=== PATIENT | male | born 1965 | race Caucasian/White ===

== ENCOUNTER 2017-12-02 10:26 | Inpatient (IN) | payer OTHER ==
[2017-12-02] MEDS ORDERED: Albuterol/Ipratropium 3.0-0.5 MG/3 ML Neb Soln NEB ONE (10:33)
[2017-12-02] MEDS ORDERED: Aspirin 81 MG Tab.Chew PO ONE (10:33)
[2017-12-02] MEDS ORDERED: Sodium Chloride 0.9% 2.5 ML Syringe FLUSH PRN (10:33)
[2017-12-02] MEDS ORDERED: Nitroglycerin 2% Oint 1 GM UD Packet TOP ONE (10:33)
[2017-12-02] MEDS ORDERED: Sodium Chloride 0.9% 10 ML Syringe FLUSH PRN (10:33)
--- NOTE | 2017-12-02 10:35 | EDM.PDOC ---
ED HPI GENERAL MEDICAL PROBLEM - General Chief Complaint: Respiratory Problem Stated Complaint: SOB Time Seen by Provider: 12/02/17 10:27 - History of Present Illness INITIAL COMMENTS - FREE TEXT/NARRATIVE: HISTORY AND PHYSICAL: History of present illness: The patient is a 52-year-old male presents with a two-week history of progressive shortness of breath and coughing occasionally productive of phlegm and feeling like he has great difficulty breathing. The patient said that about 2 weeks ago he thought he had cold symptoms and that there was some phlegm and he felt short of breath and that seemed to improve slightly from the phlegm perspective but the shortness of breath seemed to progress. Patient does have a history of sleep apnea and is supposed to use CPAP but due to his insurance he does not have that. He sleeps in a recliner for the most of the nights but occasionally he will sleep in bed. He says that he has not had a fever vomiting abdominal pain urinary issues leg pain or swelling. He denies chest pain but says that he feels like there is phlegm in there or fluid that he cannot get out. The shortness of breath seemed to be worse today and he had a restless night so he came in for evaluation. He has a history of borderline diabetes and thinks he has high blood pressure but he has not seen her provider in quite some time and has no medical diagnosis nor does he take any medications. The patient is a smoker of one pack a day but no drug use. Review of systems: As per history of present illness and below otherwise all systems reviewed and negative. Past medical history: As per history of present illness and as reviewed below otherwise noncontributory. Surgical history: As per history of present illness and as reviewed below otherwise noncontributory. Social history: No reported history of drug or alcohol abuse. Family history: As per history of present illness and as reviewed below otherwise noncontributory. Physical exam: General: Well-developed well-nourished man who is severely overweight but is speaking clearly in the ED with breathlessness only with activity. His O2 sat on room air ranges from 88-91% on my evaluation. His elevated blood pressure is also noted by me HEENT: Atraumatic, normocephalic, pupils reactive, negative for conjunctival pallor or scleral icterus, mucous membranes moist, throat clear, neck supple, nontender, trachea midline. Lungs: Upper lobes Clear to auscultation, very diminished in the bases and poor air exchange overall, there are occasional coarse breath sounds and slight crackles in the bases, breath sounds equal bilaterally, chest nontender. There is no work of breathing stridor Heart: S1S2, regular rate and rhythm no overt murmurs, the patient was not legs to evaluate JVD Abdomen: Soft, nondistended, nontender. Negative for masses or hepatosplenomegaly. Negative for costovertebral tenderness. Pelvis: Stable nontender. Genitourinary: Deferred. Rectal: Deferred. Extremities: Atraumatic, negative for cords or calf pain. Neurovascular unremarkable. Is trace pedal edema but no leg asymmetry or calf tenderness Neuro: Awake, alert, oriented. Cranial nerves II through XII unremarkable. Cerebellum unremarkable. Motor and sensory unremarkable throughout. Exam nonfocal. Skin: There is no diaphoresis, no overt skin lesions or rashes and turgor is normal Diagnostics: EKG chest x-ray CBC CMP BNP troponin INR lactic acid Therapeutics: IV O2 monitor aspirin duo neb nitro paste, Solu-Medrol Lasix Testing results were discussed with the patient and the case was discussed with Dr. Longo at 11:32 AM. The patient will be admitted as an inpatient and treated for congestive heart failure which is new as well as hypertension. He is aware of testing results and is agreeable. Impression: Dyspnea progressive, new CHF, hypertension untreated Definitive disposition and diagnosis as appropriate pending reevaluation and review of above. - Related Data Allergies Allergy/AdvReac Type Severity Reaction Status Date / Time No Known Allergies Allergy Verified 12/02/17 10:37 Home Meds: Home Meds . [No Known Home Meds] 12/02/17 [History] Past Medical History HEENT History: Reports: None Cardiovascular History: Reports: None Respiratory History: Reports: None Gastrointestinal History: Reports: None Genitourinary History: Reports: Renal Calculus Musculoskeletal History: Reports: None Neurological History: Reports: None Psychiatric History: Reports: None Endocrine/Metabolic History: Reports: Other (See Below) Other Endocrine/Metabolic History: borderline DM Hematologic History: Reports: None Immunologic History: Reports: None Oncologic (Cancer) History: Reports: None Dermatologic History: Reports: None - Infectious Disease History Infectious Disease History: Reports: Chicken Pox - Past Surgical History HEENT Surgical History: Reports: Other (See Below) Social & Family History - Family History Cardiac: Reports: Hypertension Respiratory: Reports: None Endocrine/Metabolic: Reports: Diabetes, type II Immunologic: Reports: None Dermatologic: Reports: None Oncologic: Reports: Other (See Below) Other Oncologic Family History: patient dont know the exact kind of cancer ED ROS GENERAL - Review of Systems Review Of Systems: ROS reveals no pertinent complaints other than HPI. ED EXAM, GENERAL - Physical Exam Exam: See Below (See dictation) Course - Vital Signs Last Recorded V/S: Last Vital Signs Temp 36.1 C 12/02/17 10:32 Pulse 117 H 12/02/17 10:32 Resp 20 12/02/17 10:32 BP 206/146 H 12/02/17 10:32 Pulse Ox 94 L 12/02/17 10:33 - Orders/Labs/Meds Orders: Active Orders 24 hr Category Date Time Status Patient Status [ADT] Stat ADT 12/02/17 11:39 Ordered Cardiac Monitoring [RC] . DIRECTED Care 12/02/17 10:33 Active EKG Documentation Completion [RC] STAT Care 12/02/17 10:33 Active Oxygen Therapy, ED [RC] ASDIRECTED Care 12/02/17 10:33 Active Pulse Oximetry [RC] ASDIRECTED Care 12/02/17 10:33 Active RT Aerosol Therapy [RC] ASDIRECTED Care 12/02/17 10:34 Active Chest 1V Frontal [CR] Stat Exams 12/02/17 10:33 Taken Sodium Chloride 0.9% [Saline Flush] Med 12/02/17 10:33 Active 10 ml FLUSH ASDIRECTED PRN Sodium Chloride 0.9% [Saline Flush] Med 12/02/17 10:33 Active 2.5 ml FLUSH ASDIRECTED PRN Saline Lock Insert [OM.PC] Stat Oth 12/02/17 10:33 Ordered Medication Orders Sodium Chloride (Saline Flush) 10 ml FLUSH ASDIRECTED PRN PRN Reason: Keep Vein Open Last Admin: 12/02/17 10:48 Dose: 10 ml Sodium Chloride (Saline Flush) 2.5 ml FLUSH ASDIRECTED PRN PRN Reason: Keep Vein Open Last Admin: 12/02/17 10:49 Dose: 2.5 ml Labs: Laboratory Tests 05/28/18 05/28/18 05/28/18 Range/Units 10:45 10:45 10:45 WBC 11.82 H (4.0-11.0) K/uL RBC 5.68 (4.50-5.90) M/uL Hgb 17.8 H (13.0-17.0) g/dL Hct 50.4 H (38.0-50.0) % MCV 88.7 (80.0-98.0) fL MCH 31.3 (27.0-32.0) pg MCHC 35.3 (31.0-37.0) g/dL RDW Std Deviation 41.8 (28.0-62.0) fl RDW Coeff of Nito 13 (11.0-15.0) % Plt Count 262 (150-400) K/uL MPV 10.80 (7.40-12.00) fL Neut % (Auto) 67.8 (48.0-80.0) % Lymph % (Auto) 24.2 (16.0-40.0) % [facility] % (Auto) 6.3 (0.0-15.0) % Eos % (Auto) 1.4 (0.0-7.0) % Baso % (Auto) 0.3 (0.0-1.5) % Neut # (Auto) 8.0 H (1.4-5.7) K/uL Lymph # (Auto) 2.9 H (0.6-2.4) K/uL [facility] # (Auto) 0.8 (0.0-0.8) K/uL Eos # (Auto) 0.2 (0.0-0.7) K/uL Baso # (Auto) 0.0 (0.0-0.1) K/uL Nucleated RBC % 0.0 /100WBC Nucleated RBCs # 0 K/uL INR 1.05 Lactate (0.20-2.00) mmol/L Sodium 135 L (136-148) mmol/L Potassium 4.4 (3.5-5.1) mmol/L Chloride 99 (98-107) mmol/L Carbon Dioxide 26.9 (21.0-32.0) mmol/L BUN 14 (7.0-18.0) mg/dL Creatinine 1.0 (0.8-1.3) mg/dL Est Cr Clr Drug Dosing 97.00 mL/min Estimated GFR (MDRD) > 60.0 ml/min Glucose 245 H (74-106) mg/dL Calcium 8.9 (8.5-10.1) mg/dL Total Bilirubin 0.6 (0.2-1.0) mg/dL AST 18 (15-37) IU/L ALT 32 (14-63) IU/L Alkaline Phosphatase 63 (46-116) U/L Troponin I < 0.050 (0.000-0.056) ng/mL B-Natriuretic Peptide (<100) PG/ML Total Protein 7.9 (6.4-8.2) g/dL Albumin 3.6 (3.4-5.0) g/dL Globulin 4.3 H (2.0-3.5) g/dL Albumin/Globulin Ratio 0.8 L (1.3-2.8) 12/02/17 12/02/17 Range/Units 10:45 10:45 WBC (4.0-11.0) K/uL RBC (4.50-5.90) M/uL Hgb (13.0-17.0) g/dL Hct (38.0-50.0) % MCV (80.0-98.0) fL MCH (27.0-32.0) pg MCHC (31.0-37.0) g/dL RDW Std Deviation (28.0-62.0) fl RDW Coeff of Nito (11.0-15.0) % Plt Count (150-400) K/uL MPV (7.40-12.00) fL Neut % (Auto) (48.0-80.0) % Lymph % (Auto) (16.0-40.0) % [facility] % (Auto) (0.0-15.0) % Eos % (Auto) (0.0-7.0) % Baso % (Auto) (0.0-1.5) % Neut # (Auto) (1.4-5.7) K/uL Lymph # (Auto) (0.6-2.4) K/uL [facility] # (Auto) (0.0-0.8) K/uL Eos # (Auto) (0.0-0.7) K/uL Baso # (Auto) (0.0-0.1) K/uL Nucleated RBC % /100WBC Nucleated RBCs # K/uL INR Lactate 2.2 H (0.20-2.00) mmol/L Sodium (136-148) mmol/L Potassium (3.5-5.1) mmol/L Chloride (98-107) mmol/L Carbon Dioxide (21.0-32.0) mmol/L BUN (7.0-18.0) mg/dL Creatinine (0.8-1.3) mg/dL Est Cr Clr Drug Dosing mL/min Estimated GFR (MDRD) ml/min Glucose (74-106) mg/dL Calcium (8.5-10.1) mg/dL Total Bilirubin (0.2-1.0) mg/dL AST (15-37) IU/L ALT (14-63) IU/L Alkaline Phosphatase (46-116) U/L Troponin I (0.000-0.056) ng/mL B-Natriuretic Peptide 563 H (<100) PG/ML Total Protein (6.4-8.2) g/dL Albumin (3.4-5.0) g/dL Globulin (2.0-3.5) g/dL Albumin/Globulin Ratio (1.3-2.8) Meds: Medications Generic Name Dose Route Start Last Admin Trade Name Freq PRN Reason Stop Dose Admin Sodium Chloride 10 ml 12/02/17 10:33 12/02/17 10:48 Saline Flush FLUSH 10 ml ASDIRECTED PRN Administration Keep Vein Open Sodium Chloride 2.5 ml 12/02/17 10:12/02/17 10:49 Saline Flush FLUSH 2.5 ml ASDIRECTED PRN Administration Keep Vein Open Discontinued Medications Generic Name Dose Route Start Last Admin Trade Name Freq PRN Reason Stop Dose Admin Albuterol/Ipratropium 3 ml 12/02/17 10:33 12/02/17 10:48 Duoneb 3.0-0.5 Mg/3 Ml NEB 12/02/17 10:34 3 ml ONETIME ONE Administration Aspirin 324 mg 12/02/17 10:33 12/02/17 10:48 Aspirin PO 12/02/17 10:34 324 mg ONETIME ONE Administration Furosemide 60 mg 12/02/17 11:34 Lasix IVPUSH 12/02/17 11:35 NOW ONE Methylprednisolone Sodium Succinate 125 mg 12/02/17 10:53 12/02/17 10:56 Solu-Medrol IVPUSH 12/02/17 10:54 125 mg ONETIME ONE Administration Nitroglycerin 0.5 gm 12/02/17 10:33 12/02/17 10:48 Nitro-Bid 2% TOP 12/02/17 10:34 0.5 gm ONETIME ONE Administration Departure - Departure Time of Disposition: 11:40 Disposition: Admitted As Inpatient 68 Condition: Good Clinical Impression: Congestive heart failure Qualifiers: Heart failure type: unspecified Heart failure chronicity: unspecified Qualified Code(s): I50.9 - Heart failure, unspecified Hypertension Qualifiers: Hypertension type: unspecified Qualified Code(s): I10 - Essential (primary) hypertension Dyspnea Qualifiers: Dyspnea type: unspecified Qualified Code(s): R06.00 - Dyspnea, unspecified - Discharge Information Referrals: PCP,Unknown [Primary Care Provider] - Forms: ED Department Discharge - My Orders Last 24 Hours: My Active Orders 12/02/17 10:33 Cardiac Monitoring [RC] . DIRECTED EKG Documentation Completion [RC] STAT Oxygen Therapy, ED [RC] ASDIRECTED Pulse Oximetry [RC] ASDIRECTED Chest 1V Frontal [CR] Stat Sodium Chloride 0.9% [Saline Flush] 10 ml FLUSH ASDIRECTED PRN Sodium Chloride 0.9% [Saline Flush] 2.5 ml FLUSH ASDIRECTED PRN Saline Lock Insert [OM.PC] Stat 12/02/17 10:34 RT Aerosol Therapy [RC] ASDIRECTED 12/02/17 11:39 Patient Status [ADT] Stat - Assessment/Plan Last 24 Hours: My Active Orders 12/02/17 10:33 Cardiac Monitoring [RC] . DIRECTED EKG Documentation Completion [RC] STAT Oxygen Therapy, ED [RC] ASDIRECTED Pulse Oximetry [RC] ASDIRECTED Chest 1V Frontal [CR] Stat Sodium Chloride 0.9% [Saline Flush] 10 ml FLUSH ASDIRECTED PRN Sodium Chloride 0.9% [Saline Flush] 2.5 ml FLUSH ASDIRECTED PRN Saline Lock Insert [OM.PC] Stat 12/02/17 10:34 RT Aerosol Therapy [RC] ASDIRECTED 12/02/17 11:39 Patient Status [ADT] Stat
[2017-12-02] MEDS ORDERED: methylPREDNISolone Sodium Succinate 125 MG/2 ML SDV IVPUSH ONE (10:53)
[2017-12-02 11:13] LABS: CHLORIDE,CL 99 mmol/L (98-107); SODIUM,NA 135 mmol/L (136-148)
[2017-12-02] MEDS ORDERED: Furosemide 40 MG/4 ML VIAL IVPUSH ONE (11:34)
[2017-12-02] MEDS ORDERED: Ondansetron 4 MG Tab.DIS PO PRN (13:01)
[2017-12-02] MEDS ORDERED: Docusate Sodium 100 MG Cap PO PRN (13:01)
[2017-12-02] MEDS ORDERED: Acetaminophen 325 MG Tab PO PRN (13:01)
--- NOTE | 2017-12-02 13:18 | PCM.HP ---
H&P History of Present Illness - General Date of Service: 12/02/17 Admit Problem/Dx: Admission Diagnosis/Problem Admission Diagnosis/Problem Congestive heart failure - History of Present Illness Initial Comments - Free Text/Narative: 52 yo m admitted for SOB and acute hypoxic respiratory failure. He has had little medical care over his life and last time seeing doctor was over 10 years ago. He states that for 2 weeks now he has been experiencing severe sob, soriano and orthopena. It worsened to the point where he finally decided to present to the ED. He admists to having an unhealthy lifestyle and poor diet. He has no diagnosed HTN, COPD or DM but at admission in ED he had uncontrolled HTN over 200/100 and his BG was 265. He also admits to smoking 1 ppd for 20 years. His symptoms improved after he received the oxygen. He denies any PMH and does not take any medications. He denies chest pain, edema, palpitations, syncope, numbness ,tingling, fever, chills or night sweats. - Related Data Allergies/Adverse Reactions: Allergies Allergy/AdvReac Type Severity Reaction Status Date / Time No Known Allergies Allergy Verified 12/02/17 10:37 Home Medications: Home Meds . [No Known Home Meds] 12/02/17 [History] Past Medical History HEENT History: Reports: None Cardiovascular History: Reports: None Other Cardiovascular History: pt reports he had borderline HTN a few years ago Respiratory History: Reports: None Gastrointestinal History: Reports: None Genitourinary History: Reports: Renal Calculus Musculoskeletal History: Reports: None Neurological History: Reports: None Psychiatric History: Reports: None Other Psychiatric History: states he may have a little bit of depression Endocrine/Metabolic History: Reports: Other (See Below) Other Endocrine/Metabolic History: borderline DM Hematologic History: Reports: None Immunologic History: Reports: None Oncologic (Cancer) History: Reports: None Dermatologic History: Reports: None - Infectious Disease History Infectious Disease History: Reports: Chicken Pox - Past Surgical History HEENT Surgical History: Reports: Other (See Below) Social & Family History - Family History Family Medical History: Noncontributory Cardiac: Reports: Hypertension Respiratory: Reports: None Endocrine/Metabolic: Reports: Diabetes, type II Immunologic: Reports: None Dermatologic: Reports: None Oncologic: Reports: Other (See Below) Other Oncologic Family History: patient dont know the exact kind of cancer - Tobacco Use Smoking Status *Q: Former Smoker Years of Tobacco use: 20 Packs/Tins Daily: 0.5 Used Tobacco, but Quit: Yes Month/Year Tobacco Last Used: 11/2017 Tobacco Use Comment: pt states he quit smoking yesterday - Caffeine Use Caffeine Use: Reports: Coffee, Energy Drinks, Soda, Tea - Recreational Drug Use Recreational Drug Use: No H&P Review of Systems - Review of Systems: Review Of Systems: See Below General: Reports: No Symptoms HEENT: Reports: No Symptoms Pulmonary: Reports: Shortness of Breath Cardiovascular: Reports: Dyspnea on Exertion Gastrointestinal: Reports: No Symptoms Genitourinary: Reports: No Symptoms Musculoskeletal: Reports: No Symptoms Skin: Reports: No Symptoms Psychiatric: Reports: No Symptoms Neurological: Reports: No Symptoms Hematologic/Lymphatic: Reports: No Symptoms Immunologic: Reports: No Symptoms Exam - Exam Exam: See Below - Vital Signs Vital Signs: Last Vital Signs Temp 36.1 C 12/02/17 10:32 Pulse 109 H 12/02/17 12:00 Resp 18 12/02/17 12:00 BP 155/101 H 12/02/17 12:00 Pulse Ox 94 L 12/02/17 12:00 Weight: 142.882 kg - Exam Quality Assessment: Supplemental Oxygen General: Alert, Oriented, Cooperative HEENT: Conjunctiva Clear, EACs Clear, EOMI, Hearing Intact, Mucosa Moist & [place] , Nares Patent, Normal Nasal Septum, Posterior Pharynx Clear, Pupils Equal, Pupils Reactive Neck: Supple, Trachea Midline. No: JVD Lungs: Decreased Breath Sounds (non-focal), Crackles (diffuse inspiratory ) Cardiovascular: Regular Rate, Regular Rhythm GI/Abdominal Exam: Normal Bowel Sounds, Soft, Non-Tender Extremities: Normal Inspection, Normal Range of Motion, Non-Tender, No Pedal Edema, Normal Capillary Refill Peripheral Pulses: 1+: Dorsalis Pedis (L), Dorsalis Pedis (R) Skin: Warm, Dry, Intact Neurological: Cranial Nerves Intact, Reflexes Equal Bilateral Neuro Extensive - Mental Status: Alert, Oriented x3, Normal Mood/Affect, Normal Cognition Psychiatric: Alert, Normal Affect, Normal Mood - Patient Data Lab Results Last 24 hrs: Laboratory Results - last 24 hr 12/02/17 12/02/17 12/02/17 Range/Units 10:45 10:45 10:45 WBC 11.82 H (4.0-11.0) K/uL RBC 5.68 (4.50-5.90) M/uL Hgb 17.8 H (13.0-17.0) g/dL Hct 50.4 H (38.0-50.0) % MCV 88.7 (80.0-98.0) fL MCH 31.3 (27.0-32.0) pg MCHC 35.3 (31.0-37.0) g/dL RDW Std Deviation 41.8 (28.0-62.0) fl RDW Coeff of Nito 13 (11.0-15.0) % Plt Count 262 (150-400) K/uL MPV 10.80 (7.40-12.00) fL Neut % (Auto) 67.8 (48.0-80.0) % Lymph % (Auto) 24.2 (16.0-40.0) % [place] % (Auto) 6.3 (0.0-15.0) % Eos % (Auto) 1.4 (0.0-7.0) % Baso % (Auto) 0.3 (0.0-1.5) % Neut # (Auto) 8.0 H (1.4-5.7) K/uL Lymph # (Auto) 2.9 H (0.6-2.4) K/uL [place] # (Auto) 0.8 (0.0-0.8) K/uL Eos # (Auto) 0.2 (0.0-0.7) K/uL Baso # (Auto) 0.0 (0.0-0.1) K/uL Nucleated RBC % 0.0 /100WBC Nucleated RBCs # 0 K/uL INR 1.05 Lactate (0.20-2.00) mmol/L Sodium 135 L (136-148) mmol/L Potassium 4.4 (3.5-5.1) mmol/L Chloride 99 (98-107) mmol/L Carbon Dioxide 26.9 (21.0-32.0) mmol/L BUN 14 (7.0-18.0) mg/dL Creatinine 1.0 (0.8-1.3) mg/dL Est Cr Clr Drug Dosing 97.00 mL/min Estimated GFR (MDRD) > 60.0 ml/min Glucose 245 H (74-106) mg/dL Calcium 8.9 (8.5-10.1) mg/dL Total Bilirubin 0.6 (0.2-1.0) mg/dL AST 18 (15-37) IU/L ALT 32 (14-63) IU/L Alkaline Phosphatase 63 (46-116) U/L Troponin I < 0.050 (0.000-0.056) ng/mL B-Natriuretic Peptide (<100) PG/ML Total Protein 7.9 (6.4-8.2) g/dL Albumin 3.6 (3.4-5.0) g/dL Globulin 4.3 H (2.0-3.5) g/dL Albumin/Globulin Ratio 0.8 L (1.3-2.8) 12/02/17 12/02/17 Range/Units 10:45 10:45 WBC (4.0-11.0) K/uL RBC (4.50-5.90) M/uL Hgb (13.0-17.0) g/dL Hct (38.0-50.0) % MCV (80.0-98.0) fL MCH (27.0-32.0) pg MCHC (31.0-37.0) g/dL RDW Std Deviation (28.0-62.0) fl RDW Coeff of Nito (11.0-15.0) % Plt Count (150-400) K/uL MPV (7.40-12.00) fL Neut % (Auto) (48.0-80.0) % Lymph % (Auto) (16.0-40.0) % [place] % (Auto) (0.0-15.0) % Eos % (Auto) (0.0-7.0) % Baso % (Auto) (0.0-1.5) % Neut # (Auto) (1.4-5.7) K/uL Lymph # (Auto) (0.6-2.4) K/uL [place] # (Auto) (0.0-0.8) K/uL Eos # (Auto) (0.0-0.7) K/uL Baso # (Auto) (0.0-0.1) K/uL Nucleated RBC % /100WBC Nucleated RBCs # K/uL INR Lactate 2.2 H (0.20-2.00) mmol/L Sodium (136-148) mmol/L Potassium (3.5-5.1) mmol/L Chloride (98-107) mmol/L Carbon Dioxide (21.0-32.0) mmol/L BUN (7.0-18.0) mg/dL Creatinine (0.8-1.3) mg/dL Est Cr Clr Drug Dosing mL/min Estimated GFR (MDRD) ml/min Glucose (74-106) mg/dL Calcium (8.5-10.1) mg/dL Total Bilirubin (0.2-1.0) mg/dL AST (15-37) IU/L ALT (14-63) IU/L Alkaline Phosphatase (46-116) U/L Troponin I (0.000-0.056) ng/mL B-Natriuretic Peptide 563 H (<100) PG/ML Total Protein (6.4-8.2) g/dL Albumin (3.4-5.0) g/dL Globulin (2.0-3.5) g/dL Albumin/Globulin Ratio (1.3-2.8) Result Diagrams: 12/02/17 10:45 12/02/17 10:45 Problem List Initiated/Reviewed/Updated: Yes Orders Last 24hrs: Active Orders 24 hr Category Date Time Status Patient Status [ADT] Routine ADT 12/02/17 13:01 Ordered Patient Status [ADT] Stat ADT 12/02/17 11:39 Active Blood Glucose Check, Bedside [RC] WITHMEALSANDBED Care 12/02/17 13:01 Ordered Cardiac Monitoring [RC] . DIRECTED Care 12/02/17 10:33 Active EKG Documentation Completion [RC] STAT Care 12/02/17 10:33 Active Height and Weight [RC] DAILY Care 12/02/17 13:01 Ordered Intake and Output [RC] QSHIFT Care 12/02/17 13:02 Ordered Oxygen Therapy [RC] PRN Care 12/02/17 13:01 Ordered Oxygen Therapy, ED [RC] ASDIRECTED Care 12/02/17 10:33 Active Pulse Oximetry [RC] ASDIRECTED Care 12/02/17 10:33 Active RT Aerosol Therapy [RC] ASDIRECTED Care 12/02/17 10:34 Active Up ad Qi [RC] ASDIRECTED Care 12/02/17 13:01 Ordered VTE/DVT Education [RC] PER UNIT ROUTINE Care 12/02/17 13:01 Ordered Vital Signs [RC] Q4H Care 12/02/17 13:01 Ordered Heart Healthy Diet [DIET] Diet 12/02/17 Dinner Active Chest 1V Frontal [CR] Stat Exams 12/02/17 10:33 Taken BASIC METABOLIC PANEL,BMP [CHEM] AM Lab 12/03/17 05:11 Ordered BASIC METABOLIC PANEL,BMP [CHEM] AM Lab 12/04/17 05:11 Ordered BASIC METABOLIC PANEL,BMP [CHEM] AM Lab 12/05/17 05:11 Ordered BASIC METABOLIC PANEL,BMP [CHEM] AM Lab 12/06/17 05:11 Ordered BASIC METABOLIC PANEL,BMP [CHEM] AM Lab 12/07/17 05:11 Ordered CBC WITH AUTO DIFF [HEME] AM Lab 12/03/17 05:11 Ordered CBC WITH AUTO DIFF [HEME] AM Lab 12/04/17 05:11 Ordered CBC WITH AUTO DIFF [HEME] AM Lab 12/05/17 05:11 Ordered CBC WITH AUTO DIFF [HEME] AM Lab 12/06/17 05:11 Ordered CBC WITH AUTO DIFF [HEME] AM Lab 12/07/17 05:11 Ordered GLYCOSYLATED HEMOGLOBIN,HGBA1C [CHEM] Routine Lab 12/02/17 13:01 Ordered MAGNESIUM [CHEM] AM Lab 12/03/17 05:11 Ordered Acetaminophen [Tylenol] Med 12/02/17 13:01 Ordered 650 mg PO Q4H PRN Docusate Sodium [Colace] Med 12/02/17 13:01 Ordered 100 mg PO BID PRN Enoxaparin [Lovenox] Med 12/02/17 13:15 Ordered 40 mg SUBCUT Q24H Ondansetron [Zofran ODT] Med 12/02/17 13:01 Ordered 4 mg PO Q4H PRN Sodium Chloride 0.9% [Saline Flush] Med 12/02/17 10:33 Active 10 ml FLUSH ASDIRECTED PRN Sodium Chloride 0.9% [Saline Flush] Med 12/02/17 10:33 Active 2.5 ml FLUSH ASDIRECTED PRN Saline Lock Insert [OM.PC] Stat Oth 12/02/17 10:33 Ordered Sequential Compression Device [OM.PC] Per Unit Routine Oth 12/02/17 13:02 Ordered Resuscitation Status Routine Resus Stat 12/02/17 13:01 Ordered Medication Orders Sodium Chloride (Saline Flush) 10 ml FLUSH ASDIRECTED PRN PRN Reason: Keep Vein Open Last Admin: 12/02/17 10:48 Dose: 10 ml Sodium Chloride (Saline Flush) 2.5 ml FLUSH ASDIRECTED PRN PRN Reason: Keep Vein Open Last Admin: 12/02/17 10:49 Dose: 2.5 ml Assessment/Plan Comment:: Acute Hypoxic Respiratory Failure -differential includes Acute CHF exacerbation and/or Acute COPD exacerbation -admit to obs -cardiac monitoring and supplemental O2 -Lasix diuresis -start duonebs PRN for sob -obtain echo #HTN, uncontrolled -no prior diagnosis but likely long standing -start Lisinopril 10 mg QD -continue monitor and increase dose or add medications as tolerated #Hyperglycemia -no previous diagnosis of DM -monitor BG and obtain HbA1C #Tobacco Abuse, 1 ppd, 20 pack year history -nicotine patch code: full diet: cardiac DVT Prophylaxis: Lovenox -
[2017-12-02] MEDS ORDERED: Albuterol/Ipratropium 3.0-0.5 MG/3 ML Neb Soln NEB PRN (13:20)
[2017-12-02] MEDS ORDERED: Azithromycin 250 MG Tab PO ONE (13:51)
[2017-12-02] MEDS: Enoxaparin 40 MG/0.4 ML Syringe SUBCUT SCH (14:11)
[2017-12-02] MEDS: Nicotine 21 MG/24 Hr Patch TRDERM SCH (14:12)
[2017-12-02] MEDS: Lisinopril 10 MG Tab PO SCH (14:13)
[2017-12-02] MEDS: Azithromycin 250 MG Tab PO SCH (14:23)
[2017-12-02] MEDS: Insulin Aspart 100 Units/ML 3 ML Pen SUBCUT SCH ×2 (17:24→21:31)
[2017-12-02] MEDS: Albuterol/Ipratropium 3.0-0.5 MG/3 ML Neb Soln NEB SCH ×3 (17:55→21:00)
[2017-12-03] MEDS: Albuterol/Ipratropium 3.0-0.5 MG/3 ML Neb Soln NEB SCH ×6 (03:00→21:33)
[2017-12-03 05:20] LABS: CHLORIDE,CL 98 mmol/L (98-107); SODIUM,NA 135 mmol/L (136-148)
[2017-12-03] MEDS: Insulin Aspart 100 Units/ML 3 ML Pen SUBCUT SCH ×5 (07:43→22:45)
[2017-12-03] MEDS ORDERED: Furosemide 40 MG/4 ML VIAL IVPUSH ONE (08:16)
[2017-12-03] MEDS: Lisinopril 10 MG Tab PO SCH (08:34)
[2017-12-03] MEDS: Nicotine 21 MG/24 Hr Patch TRDERM SCH (08:35)
--- NOTE | 2017-12-03 10:15 | PCM.PN ---
- General Info Date of Service: 12/03/17 Admission Dx/Problem (Free Text): Admission Diagnosis/Problem Admission Diagnosis/Problem Congestive heart failure Subjective Update: No overnight events. Patient doing better today. BG levels 200-250. Functional Status: Reports: Pain Controlled, Tolerating Diet, Ambulating - Review of Systems General: Reports: No Symptoms HEENT: Reports: No Symptoms Pulmonary: Reports: Shortness of Breath, Other (orthopnea) Cardiovascular: Reports: No Symptoms Gastrointestinal: Reports: No Symptoms Genitourinary: Reports: No Symptoms Musculoskeletal: Reports: No Symptoms Skin: Reports: No Symptoms Neurological: Reports: No Symptoms Psychiatric: Reports: No Symptoms - Patient Data Vitals - Most Recent: Last Vital Signs Temp 36.4 C 12/03/17 07:32 Pulse 84 12/03/17 07:32 Resp 16 12/03/17 07:32 BP 107/54 L 12/03/17 08:34 Pulse Ox 91 L 12/03/17 07:32 Weight - Most Recent: 141.606 kg I&O - Last 24 Hours: Intake & Output 12/02/17 12/03/17 12/03/17 22:59 06:59 14:59 Intake Total 640 900 Output Total 1870 1180 Balance -1230 -280 Lab Results Last 24 Hours: Laboratory Results - last 24 hr 12/02/17 12/02/17 12/02/17 Range/Units 10:45 10:45 10:45 WBC 11.82 H (4.0-11.0) K/uL RBC 5.68 (4.50-5.90) M/uL Hgb 17.8 H (13.0-17.0) g/dL Hct 50.4 H (38.0-50.0) % MCV 88.7 (80.0-98.0) fL MCH 31.3 (27.0-32.0) pg MCHC 35.3 (31.0-37.0) g/dL RDW Std Deviation 41.8 (28.0-62.0) fl RDW Coeff of Nito 13 (11.0-15.0) % Plt Count 262 (150-400) K/uL MPV 10.80 (7.40-12.00) fL Neut % (Auto) 67.8 (48.0-80.0) % Lymph % (Auto) 24.2 (16.0-40.0) % [place] % (Auto) 6.3 (0.0-15.0) % Eos % (Auto) 1.4 (0.0-7.0) % Baso % (Auto) 0.3 (0.0-1.5) % Neut # (Auto) 8.0 H (1.4-5.7) K/uL Lymph # (Auto) 2.9 H (0.6-2.4) K/uL [place] # (Auto) 0.8 (0.0-0.8) K/uL Eos # (Auto) 0.2 (0.0-0.7) K/uL Baso # (Auto) 0.0 (0.0-0.1) K/uL Nucleated RBC % 0.0 /100WBC Nucleated RBCs # 0 K/uL INR 1.05 Lactate (0.20-2.00) mmol/L Sodium 135 L (136-148) mmol/L Potassium 4.4 (3.5-5.1) mmol/L Chloride 99 (98-107) mmol/L Carbon Dioxide 26.9 (21.0-32.0) mmol/L BUN 14 (7.0-18.0) mg/dL Creatinine 1.0 (0.8-1.3) mg/dL Est Cr Clr Drug Dosing 97.00 mL/min Estimated GFR (MDRD) > 60.0 ml/min Glucose 245 H (74-106) mg/dL POC Glucose (60-110) mg/dL Hemoglobin A1c (4.5-6.2) % Calcium 8.9 (8.5-10.1) mg/dL Magnesium (1.5-2.0) mg/dL Total Bilirubin 0.6 (0.2-1.0) mg/dL AST 18 (15-37) IU/L ALT 32 (14-63) IU/L Alkaline Phosphatase 63 (46-116) U/L Troponin I < 0.050 (0.000-0.056) ng/mL B-Natriuretic Peptide (<100) PG/ML Total Protein 7.9 (6.4-8.2) g/dL Albumin 3.6 (3.4-5.0) g/dL Globulin 4.3 H (2.0-3.5) g/dL Albumin/Globulin Ratio 0.8 L (1.3-2.8) 12/02/17 12/02/17 12/02/17 Range/Units 10:45 10:45 10:45 WBC (4.0-11.0) K/uL RBC (4.50-5.90) M/uL Hgb (13.0-17.0) g/dL Hct (38.0-50.0) % MCV (80.0-98.0) fL MCH (27.0-32.0) pg MCHC (31.0-37.0) g/dL RDW Std Deviation (28.0-62.0) fl RDW Coeff of Nito (11.0-15.0) % Plt Count (150-400) K/uL MPV (7.40-12.00) fL Neut % (Auto) (48.0-80.0) % Lymph % (Auto) (16.0-40.0) % [place] % (Auto) (0.0-15.0) % Eos % (Auto) (0.0-7.0) % Baso % (Auto) (0.0-1.5) % Neut # (Auto) (1.4-5.7) K/uL Lymph # (Auto) (0.6-2.4) K/uL [place] # (Auto) (0.0-0.8) K/uL Eos # (Auto) (0.0-0.7) K/uL Baso # (Auto) (0.0-0.1) K/uL Nucleated RBC % /100WBC Nucleated RBCs # K/uL INR Lactate 2.2 H (0.20-2.00) mmol/L Sodium (136-148) mmol/L Potassium (3.5-5.1) mmol/L Chloride (98-107) mmol/L Carbon Dioxide (21.0-32.0) mmol/L BUN (7.0-18.0) mg/dL Creatinine (0.8-1.3) mg/dL Est Cr Clr Drug Dosing mL/min Estimated GFR (MDRD) ml/min Glucose (74-106) mg/dL POC Glucose (60-110) mg/dL Hemoglobin A1c 10.0 H (4.5-6.2) % Calcium (8.5-10.1) mg/dL Magnesium (1.5-2.0) mg/dL Total Bilirubin (0.2-1.0) mg/dL AST (15-37) IU/L ALT (14-63) IU/L Alkaline Phosphatase (46-116) U/L Troponin I (0.000-0.056) ng/mL B-Natriuretic Peptide 563 H (<100) PG/ML Total Protein (6.4-8.2) g/dL Albumin (3.4-5.0) g/dL Globulin (2.0-3.5) g/dL Albumin/Globulin Ratio (1.3-2.8) 12/02/17 12/02/17 12/02/17 Range/Units 15:01 16:39 21:26 WBC (4.0-11.0) K/uL RBC (4.50-5.90) M/uL Hgb (13.0-17.0) g/dL Hct (38.0-50.0) % MCV (80.0-98.0) fL MCH (27.0-32.0) pg MCHC (31.0-37.0) g/dL RDW Std Deviation (28.0-62.0) fl RDW Coeff of Nito (11.0-15.0) % Plt Count (150-400) K/uL MPV (7.40-12.00) fL Neut % (Auto) (48.0-80.0) % Lymph % (Auto) (16.0-40.0) % [place] % (Auto) (0.0-15.0) % Eos % (Auto) (0.0-7.0) % Baso % (Auto) (0.0-1.5) % Neut # (Auto) (1.4-5.7) K/uL Lymph # (Auto) (0.6-2.4) K/uL [place] # (Auto) (0.0-0.8) K/uL Eos # (Auto) (0.0-0.7) K/uL Baso # (Auto) (0.0-0.1) K/uL Nucleated RBC % /100WBC Nucleated RBCs # K/uL INR Lactate 2.3 H (0.20-2.00) mmol/L Sodium (136-148) mmol/L Potassium (3.5-5.1) mmol/L Chloride (98-107) mmol/L Carbon Dioxide (21.0-32.0) mmol/L BUN (7.0-18.0) mg/dL Creatinine (0.8-1.3) mg/dL Est Cr Clr Drug Dosing mL/min Estimated GFR (MDRD) ml/min Glucose (74-106) mg/dL POC Glucose 283 H 321 H (60-110) mg/dL Hemoglobin A1c (4.5-6.2) % Calcium (8.5-10.1) mg/dL Magnesium (1.5-2.0) mg/dL Total Bilirubin (0.2-1.0) mg/dL AST (15-37) IU/L ALT (14-63) IU/L Alkaline Phosphatase (46-116) U/L Troponin I (0.000-0.056) ng/mL B-Natriuretic Peptide (<100) PG/ML Total Protein (6.4-8.2) g/dL Albumin (3.4-5.0) g/dL Globulin (2.0-3.5) g/dL Albumin/Globulin Ratio (1.3-2.8) 12/03/17 12/03/17 Range/Units 04:50 04:50 WBC 15.61 H (4.0-11.0) K/uL RBC 5.07 (4.50-5.90) M/uL Hgb 15.3 (13.0-17.0) g/dL Hct 45.0 (38.0-50.0) % MCV 88.8 (80.0-98.0) fL MCH 30.2 (27.0-32.0) pg MCHC 34.0 (31.0-37.0) g/dL RDW Std Deviation 41.8 (28.0-62.0) fl RDW Coeff of Nito 13 (11.0-15.0) % Plt Count 255 (150-400) K/uL MPV 10.80 (7.40-12.00) fL Neut % (Auto) 88.6 H (48.0-80.0) % Lymph % (Auto) 7.1 L (16.0-40.0) % [place] % (Auto) 4.3 (0.0-15.0) % Eos % (Auto) 0.0 (0.0-7.0) % Baso % (Auto) 0.0 (0.0-1.5) % Neut # (Auto) 13.8 H (1.4-5.7) K/uL Lymph # (Auto) 1.1 (0.6-2.4) K/uL [place] # (Auto) 0.7 (0.0-0.8) K/uL Eos # (Auto) 0.0 (0.0-0.7) K/uL Baso # (Auto) 0.0 (0.0-0.1) K/uL Nucleated RBC % 0.0 /100WBC Nucleated RBCs # 0 K/uL INR Lactate (0.20-2.00) mmol/L Sodium 135 L (136-148) mmol/L Potassium 4.4 (3.5-5.1) mmol/L Chloride 98 (98-107) mmol/L Carbon Dioxide 31.1 (21.0-32.0) mmol/L BUN 25 H (7.0-18.0) mg/dL Creatinine 1.2 (0.8-1.3) mg/dL Est Cr Clr Drug Dosing 80.83 mL/min Estimated GFR (MDRD) > 60.0 ml/min Glucose 255 H (74-106) mg/dL POC Glucose (60-110) mg/dL Hemoglobin A1c (4.5-6.2) % Calcium 8.8 (8.5-10.1) mg/dL Magnesium 1.7 (1.5-2.0) mg/dL Total Bilirubin (0.2-1.0) mg/dL AST (15-37) IU/L ALT (14-63) IU/L Alkaline Phosphatase (46-116) U/L Troponin I (0.000-0.056) ng/mL B-Natriuretic Peptide (<100) PG/ML Total Protein (6.4-8.2) g/dL Albumin (3.4-5.0) g/dL Globulin (2.0-3.5) g/dL Albumin/Globulin Ratio (1.3-2.8) Alexey Results Last 24 Hours: Microbiology 12/02/17 21:00 Gram Stain - Final Sputum - Expectorated Med Orders - Current: Current Medications Acetaminophen (Tylenol) 650 mg PO Q4H PRN PRN Reason: Pain (Mild 1-3)/fever Albuterol/Ipratropium (Duoneb 3.0-0.5 Mg/3 Ml) 3 ml NEB Q4HRRT [facility] Last Admin: 12/03/17 09:45 Dose: 3 ml Azithromycin (Zithromax) 250 mg PO Q24H [facility] Last Admin: 12/02/17 14:23 Dose: Not Given Docusate Sodium (Colace) 100 mg PO BID PRN PRN Reason: Constipation Enoxaparin Sodium (Lovenox) 40 mg SUBCUT Q24H [facility] Last Admin: 12/02/17 14:11 Dose: 40 mg Insulin Aspart (Novolog) 0 unit SUBCUT ACBED [facility]; Protocol Last Admin: 12/03/17 08:54 Dose: Not Given Lisinopril (Prinivil) 10 mg PO DAILY [facility] Last Admin: 12/03/17 08:34 Dose: 10 mg Nicotine (Habitrol) 21 mg TRDERM DAILY [facility] Last Admin: 12/03/17 08:35 Dose: 21 mg Ondansetron HCl (Zofran Odt) 4 mg PO Q4H PRN PRN Reason: nausea, able to take PO Sodium Chloride (Saline Flush) 10 ml FLUSH ASDIRECTED PRN PRN Reason: Keep Vein Open Last Admin: 12/02/17 10:48 Dose: 10 ml Sodium Chloride (Saline Flush) 2.5 ml FLUSH ASDIRECTED PRN PRN Reason: Keep Vein Open Last Admin: 12/02/17 10:49 Dose: 2.5 ml Discontinued Medications Albuterol/Ipratropium (Duoneb 3.0-0.5 Mg/3 Ml) 3 ml NEB ONETIME ONE Stop: 12/02/17 10:34 Last Admin: 12/02/17 10:48 Dose: 3 ml Albuterol/Ipratropium (Duoneb 3.0-0.5 Mg/3 Ml) 3 ml NEB Q4HRRT PRN PRN Reason: Shortness of Breath Aspirin (Aspirin) 324 mg PO ONETIME ONE Stop: 12/02/17 10:34 Last Admin: 12/02/17 10:48 Dose: 324 mg Azithromycin (Zithromax) 500 mg PO ONETIME ONE Stop: 12/02/17 13:52 Last Admin: 12/02/17 14:18 Dose: 500 mg Furosemide (Lasix) 60 mg IVPUSH NOW ONE Stop: 12/02/17 11:35 Last Admin: 12/02/17 11:55 Dose: 60 mg Furosemide (Lasix) 40 mg IVPUSH NOW ONE Stop: 12/03/17 08:17 Last Admin: 12/03/17 08:30 Dose: 40 mg Insulin Aspart (Novolog) 0 unit SUBCUT ACBED [facility]; Protocol Last Admin: 12/03/17 07:43 Dose: 2 units Methylprednisolone Sodium Succinate (Solu-Medrol) 125 mg IVPUSH ONETIME ONE Stop: 12/02/17 10:54 Last Admin: 12/02/17 10:56 Dose: 125 mg Nitroglycerin (Nitro-Bid 2%) 0.5 gm TOP ONETIME ONE Stop: 12/02/17 10:34 Last Admin: 12/02/17 10:48 Dose: 0.5 gm - Exam Quality Assessment: Supplemental Oxygen General: Alert, Oriented HEENT: Pupils Equal, Pupils Reactive, EOMI, Mucous Membr. Moist/[place]y Neck: Supple, No JVD Lungs: Normal Respiratory Effort, Decreased Breath Sounds (BL bases ), Crackles (BL bases ) Cardiovascular: Regular Rate, Regular Rhythm GI/Abdominal Exam: Normal Bowel Sounds, Soft, Non-Tender, No Organomegaly (Male) Exam: Hernia Back Exam: Normal Inspection Extremities: Normal Inspection, Normal Range of Motion, Non-Tender, No Pedal Edema, Normal Capillary Refill Peripheral Pulses: 2+: Dorsalis Pedis (L), Dorsalis Pedis (R) Skin: Warm, Dry, Intact Neurological: No New Focal Deficit Psy/Mental Status: Alert, Normal Affect, Normal Mood - Problem List Review Problem List Initiated/Reviewed/Updated: Yes - My Orders Last 24 Hours: My Active Orders 12/02/17 13:01 Patient Status [ADT] Routine Blood Glucose Check, Bedside [RC] WITHMEALSANDBED Height and Weight [RC] DAILY Oxygen Therapy [RC] PRN Up ad Qi [RC] ASDIRECTED VTE/DVT Education [RC] PER UNIT ROUTINE Vital Signs [RC] Q4H Acetaminophen [Tylenol] 650 mg PO Q4H PRN Docusate Sodium [Colace] 100 mg PO BID PRN Ondansetron [Zofran ODT] 4 mg PO Q4H PRN Resuscitation Status Routine 12/02/17 13:02 Intake and Output [RC] QSHIFT Sequential Compression Device [OM.PC] Per Unit Routine 12/02/17 13:15 Enoxaparin [Lovenox] 40 mg SUBCUT Q24H 12/02/17 13:20 RT Aerosol Therapy [RC] ASDIRECTED Echo Comp wo Cont [US] Routine 12/02/17 13:30 Lisinopril [Prinivil] 10 mg PO DAILY Nicotine [Habitrol] 21 mg TRDERM DAILY 12/02/17 14:00 Azithromycin [Zithromax] 250 mg PO Q24H 12/02/17 16:22 Consult to Supervisor Waterproofing [Consult to Diabetic Nurse Specialist] [CONS] Routine 12/02/17 16:30 Albuterol/Ipratropium [DuoNeb 3.0-0.5 MG/3 ML] 3 ml NEB Q4HRRT 12/02/17 18:02 Blood Culture x2 Reflex Set [OM.PC] Stat 12/02/17 19:00 Telemetry Monitoring [Cardiac Monitoring] [RC] . DIRECTED 12/02/17 19:19 CULTURE BLOOD [BC] Stat 12/02/17 19:32 CULTURE BLOOD [BC] Stat 12/02/17 21:00 CULTURE SPUTUM + SMEAR [RM] Routine 12/04/17 05:11 BASIC METABOLIC PANEL,BMP [CHEM] AM CBC WITH AUTO DIFF [HEME] AM 12/05/17 05:11 BASIC METABOLIC PANEL,BMP [CHEM] AM CBC WITH AUTO DIFF [HEME] AM 12/06/17 05:11 BASIC METABOLIC PANEL,BMP [CHEM] AM CBC WITH AUTO DIFF [HEME] AM 12/07/17 05:11 BASIC METABOLIC PANEL,BMP [CHEM] AM CBC WITH AUTO DIFF [HEME] AM - Plan Plan:: #Acute Hypoxic Respiratory Failure, improving -likely multifactorial secondary to Acute CHF exacerbation and Acute COPD exacerbation, improving -continue cardiac monitoring and supplemental O2 #Acute CHF Exacerbation -echo obtained, awaiting reading -administer Lasix 40 mg IV single dose -continue BP control -continue monitoring #Acute COPD Exacerbation #Tobacco Abuse, 1 ppd, 20 pack year history -continue duonebs PRN and Azithromycin -counselled smoking cessation -continue nicotine patch #Leukocytosis, likely secondary to Solumedrol received in ED -patient afebrile with stable vitals -f/u blood and sputum cultures -on Azithromycin #HTN, improving -no prior diagnosis but likely long standing -on Lisinopril 10 mg QD -continue monitor and increase dose or add medications as tolerated #Uncontrolled Diabetes #Hyperglycemia, secondary to above -no previous diagnosis of DM, HbA1C obtained yesterday 10% -BG ranging 200-250 on SSI low dose Plan: -increase SSI to medium dose -consult DM educator -continue monitoring code: full diet: cardiac DVT Prophylaxis: Lovenox dispo: anticipate tomorrow pending continued improvement -
[2017-12-03] MEDS: Enoxaparin 40 MG/0.4 ML Syringe SUBCUT SCH (12:38)
[2017-12-03] MEDS: Azithromycin 250 MG Tab PO SCH (13:58)
--- NOTE | 2017-12-03 14:23 | CR ---
EXAM DATE: 12/02/17 PATIENT'S AGE: 52 Patient: MONCHO SIMON Facility: [place], [place] Site . Site : [id number] Study: XRay Chest [id number]/28/2018 11:01:42 AM Ordering Physician: Desiree Hoffmann Final Report: INDICATION: Chest pain; shortness of breath. COMPARISON: None. TECHNIQUE: Portable AP chest. FINDINGS: Mild cardiomegaly. Pulmonary congestion. Small bilateral pleural effusion. IMPRESSION: CHF. Dictated by Adam Brunner MD @ Dec 02 2017 11:14AM (Electronic Signature) Report Signed by Proxy. [facility]
[2017-12-04] MEDS: Albuterol/Ipratropium 3.0-0.5 MG/3 ML Neb Soln NEB SCH ×3 (03:18→09:34)
[2017-12-04 06:01] LABS: CHLORIDE,CL 102 mmol/L (98-107); SODIUM,NA 139 mmol/L (136-148)
[2017-12-04] MEDS: Insulin Aspart 100 Units/ML 3 ML Pen SUBCUT SCH ×2 (06:51→12:00)
--- NOTE | 2017-12-04 08:02 | PCM.DCSUM1 ---
Discharge Summary - Hospital Course Free Text/Narrative:: 52 yo m admitted 12/02/17 for elevated BP without prior diagnosis of HTN and acute hypoxic respiratory failure secondary to Acute CHF exacerbation. He had not seen a physician in 10 years due to lack of insurance and denied any PMH prior to current admission. He was not volume overloaded but initial CXR was consistent with Acute CHF and BNP was elevated. He was treated with Lasix for his CHF and started on Lisinopril for his HTN. His symptoms which were mainly SOB and orthopnea improved rapidly. Echocardiogram was equivocal in differentiating systolic vs diastolic dysfunction. His EF was 40% and he was found to have generalized hypokinesis. Echo reading reported poor image quality but suggested correlating clinically for systolic dysfunction and based on patients rapid recovery, lack of volume overload and possible underlying copd contributing to symptoms at presentation, chances of systolic dysfunction would be less favored over diastolic dysfunction. He was monitored on tele during stay and did have bouts of ST but was mostly NSR. He was discharged home on Lisinopril 20 mg QD and f/u with new PCP was arranged. He also likely has undiagnosed underlying COPD from 20 pack year smoking history and Acute COPD exacerbation likely also contributed to his hypoxia as evidenced by improvement of breathing with nebulizer treatments. He received single dose of Solumedrol and was treated with Azithromycin and duonebs during his stay. He denied and recent or current chest pain, edema, palpitations, syncope, numbness ,tingling, fever, chills or night sweats. He was given samples and prescriptions for Albuterol INH QID and Salmeterol BID. He was also giiven Azithro 250 mg QD to complete 5 day course. Out-patient PFT was recommneded after 4-6 weeks. He was counselled on smoking cessation. He was also found to have DM with HbA1C of 10%. He had no diagnosis of DM prior to this. He as treated with SSI during admission and discharge home on Metformin 500 mg BID which he is instructed to increase to 1000 mg BID after 1 week. Discharge Diagnosis #HTN, newly diagnosed #CHF, likely Diastolic with EF 40%, likely secondary to uncontrolled HTN #Acute CHF Exacerbation, resolved -Echocardiogram was equivocal in differentiating systolic vs diastolic dysfunction. EF was 40% and he was found to have generalized hypokinesis Plan -start Lisinopril 20 mg QD -recommended weight loss -f/u with PCP arranged #Acute COPD Exacerbation #Tobacco Abuse, 1 ppd, 20 pack year history -given samples of Albuterol INH and Salmeterol -prescribed Azithromycin 250 mg QD for 2 days -counselled smoking cessation -recommend out-patient PFT in 4-6 weeks #Uncontrolled Diabetes -no previous diagnosis of DM, HbA1C obtained yesterday 10% -consulted DM educator -prescribed metformin 1000 mg BID, start with 0.5 tabs BID for 1 week then increase to 1 gm BID #Acute Hypoxic Respiratory Failure, resolved -likely multifactorial secondary to Acute CHF exacerbation and Acute COPD exacerbation #Leukocytosis, likely secondary to Solumedrol received in ED - Discharge Data Discharge Date: 12/04/17 Discharge Disposition: Home, Self-Care 01 Condition: Good - Patient Summary/Data Consults: Consultations 12/02/17 16:22 Consult to Architectural Drafting Instructor [Consult to Diabetic Nurse Specialist] [CONS] Routine - Patient Instructions Diet: Diabetic Diet (low carb diet ), Weight Loss Diet Activity: As Tolerated Notify Provider of: Fever, Increased Pain, Swelling and Redness, Drainage, Nausea and/or Vomiting - Discharge Plan Prescriptions/Med Rec: Albuterol [Proventil HFA] 2 puff INH Q4H PRN #1 inhaler PRN Reason: Shortness Of Breath Azithromycin [Zithromax] 250 mg PO DAILY #2 tab Fluticasone/Salmeterol [Advair 250-50] 1 puff INH BID #1 diskus Lisinopril 20 mg PO DAILY #30 tablet metFORMIN HCl [Metformin HCl] 1,000 mg PO BID #60 tablet Home Medications: Home Meds Albuterol [Proventil HFA] 2 puff INH Q4H PRN #1 inhaler 12/04/17 [Rx] Azithromycin [Zithromax] 250 mg PO DAILY #2 tab 12/04/17 [Rx] Fluticasone/Salmeterol [Advair 250-50] 1 puff INH BID #1 diskus 12/04/17 [Rx] Lisinopril 20 mg PO DAILY #30 tablet 12/04/17 [Rx] metFORMIN HCl [Metformin HCl] 1,000 mg PO BID #60 tablet 12/04/17 [Rx] Referrals: PCP,Unknown [Primary Care Provider] - - Discharge Summary/Plan Comment DC Time >30 min.: No - Patient Data Vitals - Most Recent: Last Vital Signs Temp 36.8 C 12/04/17 04:00 Pulse 99 12/04/17 04:00 Resp 20 12/04/17 04:00 BP 120/64 12/04/17 04:00 Pulse Ox 93 L 12/04/17 04:00 Weight - Most Recent: 141.702 kg I&O - Last 24 hours: Intake & Output 12/03/17 12/04/17 12/04/17 22:59 06:59 14:59 Intake Total 3040 700 Output Total 3020 2100 Balance 20 -1400 Lab Results - Last 24 hrs: Laboratory Results - last 24 hr 12/03/17 12/03/17 12/03/17 Range/Units 06:40 11:34 16:38 WBC (4.0-11.0) K/uL RBC (4.50-5.90) M/uL Hgb (13.0-17.0) g/dL Hct (38.0-50.0) % MCV (80.0-98.0) fL MCH (27.0-32.0) pg MCHC (31.0-37.0) g/dL RDW Std Deviation (28.0-62.0) fl RDW Coeff of Nito (11.0-15.0) % Plt Count (150-400) K/uL MPV (7.40-12.00) fL Neut % (Auto) (48.0-80.0) % Lymph % (Auto) (16.0-40.0) % Real % (Auto) (0.0-15.0) % Eos % (Auto) (0.0-7.0) % Baso % (Auto) (0.0-1.5) % Neut # (Auto) (1.4-5.7) K/uL Lymph # (Auto) (0.6-2.4) K/uL Real # (Auto) (0.0-0.8) K/uL Eos # (Auto) (0.0-0.7) K/uL Baso # (Auto) (0.0-0.1) K/uL Nucleated RBC % /100WBC Nucleated RBCs # K/uL Sodium (136-148) mmol/L Potassium (3.5-5.1) mmol/L Chloride (98-107) mmol/L Carbon Dioxide (21.0-32.0) mmol/L BUN (7.0-18.0) mg/dL Creatinine (0.8-1.3) mg/dL Est Cr Clr Drug Dosing Estimated GFR (MDRD) ml/min Glucose (74-106) mg/dL POC Glucose 209 H 279 H 227 H (60-110) mg/dL Calcium (8.5-10.1) mg/dL 12/03/17 12/04/17 12/04/17 Range/Units 21:44 05:20 05:20 WBC 12.61 H (4.0-11.0) K/uL RBC 5.31 (4.50-5.90) M/uL Hgb 15.9 (13.0-17.0) g/dL Hct 47.8 (38.0-50.0) % MCV 90.0 (80.0-98.0) fL MCH 29.9 (27.0-32.0) pg MCHC 33.3 (31.0-37.0) g/dL RDW Std Deviation 44.4 (28.0-62.0) fl RDW Coeff of Nito 14 (11.0-15.0) % Plt Count 237 (150-400) K/uL MPV 11.20 (7.40-12.00) fL Neut % (Auto) 62.3 (48.0-80.0) % Lymph % (Auto) 27.9 (16.0-40.0) % Real % (Auto) 9.0 (0.0-15.0) % Eos % (Auto) 0.6 (0.0-7.0) % Baso % (Auto) 0.2 (0.0-1.5) % Neut # (Auto) 7.9 H (1.4-5.7) K/uL Lymph # (Auto) 3.5 H (0.6-2.4) K/uL Real # (Auto) 1.1 H (0.0-0.8) K/uL Eos # (Auto) 0.1 (0.0-0.7) K/uL Baso # (Auto) 0.0 (0.0-0.1) K/uL Nucleated RBC % 0.0 /100WBC Nucleated RBCs # 0 K/uL Sodium 139 (136-148) mmol/L Potassium 4.6 (3.5-5.1) mmol/L Chloride 102 (98-107) mmol/L Carbon Dioxide 33.8 H (21.0-32.0) mmol/L BUN 23 H (7.0-18.0) mg/dL Creatinine 1.1 (0.8-1.3) mg/dL Est Cr Clr Drug Dosing TNP Estimated GFR (MDRD) > 60.0 ml/min Glucose 174 H (74-106) mg/dL POC Glucose 218 H (60-110) mg/dL Calcium 8.5 (8.5-10.1) mg/dL 12/04/17 Range/Units 06:22 WBC (4.0-11.0) K/uL RBC (4.50-5.90) M/uL Hgb (13.0-17.0) g/dL Hct (38.0-50.0) % MCV (80.0-98.0) fL MCH (27.0-32.0) pg MCHC (31.0-37.0) g/dL RDW Std Deviation (28.0-62.0) fl RDW Coeff of Nito (11.0-15.0) % Plt Count (150-400) K/uL MPV (7.40-12.00) fL Neut % (Auto) (48.0-80.0) % Lymph % (Auto) (16.0-40.0) % Real % (Auto) (0.0-15.0) % Eos % (Auto) (0.0-7.0) % Baso % (Auto) (0.0-1.5) % Neut # (Auto) (1.4-5.7) K/uL Lymph # (Auto) (0.6-2.4) K/uL Real # (Auto) (0.0-0.8) K/uL Eos # (Auto) (0.0-0.7) K/uL Baso # (Auto) (0.0-0.1) K/uL Nucleated RBC % /100WBC Nucleated RBCs # K/uL Sodium (136-148) mmol/L Potassium (3.5-5.1) mmol/L Chloride (98-107) mmol/L Carbon Dioxide (21.0-32.0) mmol/L BUN (7.0-18.0) mg/dL Creatinine (0.8-1.3) mg/dL Est Cr Clr Drug Dosing Estimated GFR (MDRD) ml/min Glucose (74-106) mg/dL POC Glucose 183 H (60-110) mg/dL Calcium (8.5-10.1) mg/dL MICHELLE Results - Last 24 hrs: Microbiology 12/02/17 19:32 Aerobic Blood Culture - Preliminary Blood - Venous - Lab Draw NO GROWTH AFTER 1 DAY Anaerobic Blood Culture - Preliminary NO GROWTH AFTER 1 DAY 12/02/17 19:19 Aerobic Blood Culture - Preliminary Blood - Venous NO GROWTH AFTER 1 DAY Anaerobic Blood Culture - Preliminary NO GROWTH AFTER 1 DAY Med Orders - Current: Current Medications Acetaminophen (Tylenol) 650 mg PO Q4H PRN PRN Reason: Pain (Mild 1-3)/fever Albuterol/Ipratropium (Duoneb 3.0-0.5 Mg/3 Ml) 3 ml NEB Q4HRRT [facility] Last Admin: 12/04/17 06:00 Dose: Not Given Azithromycin (Zithromax) 250 mg PO Q24H [facility] Last Admin: 12/03/17 13:58 Dose: 250 mg Docusate Sodium (Colace) 100 mg PO BID PRN PRN Reason: Constipation Enoxaparin Sodium (Lovenox) 40 mg SUBCUT Q24H [facility] Last Admin: 12/03/17 12:38 Dose: 40 mg Insulin Aspart (Novolog) 0 unit SUBCUT ACBED [facility]; Protocol Last Admin: 12/04/17 06:51 Dose: 2 units Lisinopril (Prinivil) 10 mg PO DAILY [facility] Last Admin: 12/03/17 08:34 Dose: 10 mg Nicotine (Habitrol) 21 mg TRDERM DAILY [facility] Last Admin: 12/03/17 08:35 Dose: 21 mg Ondansetron HCl (Zofran Odt) 4 mg PO Q4H PRN PRN Reason: nausea, able to take PO Sodium Chloride (Saline Flush) 10 ml FLUSH ASDIRECTED PRN PRN Reason: Keep Vein Open Last Admin: 12/02/17 10:48 Dose: 10 ml Sodium Chloride (Saline Flush) 2.5 ml FLUSH ASDIRECTED PRN PRN Reason: Keep Vein Open Last Admin: 12/02/17 10:49 Dose: 2.5 ml Discontinued Medications Albuterol/Ipratropium (Duoneb 3.0-0.5 Mg/3 Ml) 3 ml NEB ONETIME ONE Stop: 12/02/17 10:34 Last Admin: 12/02/17 10:48 Dose: 3 ml Albuterol/Ipratropium (Duoneb 3.0-0.5 Mg/3 Ml) 3 ml NEB Q4HRRT PRN PRN Reason: Shortness of Breath Aspirin (Aspirin) 324 mg PO ONETIME ONE Stop: 12/02/17 10:34 Last Admin: 12/02/17 10:48 Dose: 324 mg Azithromycin (Zithromax) 500 mg PO ONETIME ONE Stop: 12/02/17 13:52 Last Admin: 12/02/17 14:18 Dose: 500 mg Furosemide (Lasix) 60 mg IVPUSH NOW ONE Stop: 12/02/17 11:35 Last Admin: 12/02/17 11:55 Dose: 60 mg Furosemide (Lasix) 40 mg IVPUSH NOW ONE Stop: 12/03/17 08:17 Last Admin: 12/03/17 08:30 Dose: 40 mg Insulin Aspart (Novolog) 0 unit SUBCUT ACBED [facility]; Protocol Last Admin: 12/03/17 07:43 Dose: 2 units Methylprednisolone Sodium Succinate (Solu-Medrol) 125 mg IVPUSH ONETIME ONE Stop: 12/02/17 10:54 Last Admin: 12/02/17 10:56 Dose: 125 mg Nitroglycerin (Nitro-Bid 2%) 0.5 gm TOP ONETIME ONE Stop: 12/02/17 10:34 Last Admin: 12/02/17 10:48 Dose: 0.5 gm
[2017-12-04] MEDS ORDERED: Albuterol 8 GM Inhaler INH PRN (08:50)
[2017-12-04] MEDS ORDERED: Fluticasone/Salmeterol 250-50 MCG Inhalation Powder 14/Diskus INH SCH (09:00)
[2017-12-04] MEDS: Nicotine 21 MG/24 Hr Patch TRDERM SCH (09:17)
[2017-12-04] MEDS: Lisinopril 10 MG Tab PO SCH (09:21)
[2017-12-04] MEDS ORDERED: Azithromycin 250 MG Tab PO ONE (11:00)
[2017-12-04 14:45] VITALS: BP 134/79
--- NOTE | 2017-12-04 20:15 | ECHO ---
The echocardiogram report can be seen in this patient's EMR (Electronic Medical Record) in the Reports section. The echocardiogram report has also been scanned into PACS and can be seen there. [facility]
== END 2017-12-04 13:30 | disposition home or self-care (01) | DRG 291 ==
LOC: MW.ED 10:26 → MW.MS 11:42
PROVIDERS: ADMIT Internal Medicine; ATTEND Internal Medicine
DX: I50.31 Acute diastolic (congestive) heart failure (principal); J96.01 Acute respiratory failure with hypoxia; J44.1 Chronic obstructive pulmonary disease with (acute) exacerbation; Z68.41 Body mass index [BMI] 40.0-44.9, adult; I11.0 Hypertensive heart disease with heart failure; E11.65 Type 2 diabetes mellitus with hyperglycemia; D72.828 Other elevated white blood cell count; F17.210 Nicotine dependence, cigarettes, uncomplicated; F32.9 Major depressive disorder, single episode, unspecified; E66.8 Other obesity
CPT/HCPCS: 36415; 71045; 71045-26; 80048; 80053; 82962; 83036; 83605; 83735; 83880; 84484; 85025; 85610; 87040; 87070; 87205; 93005; 93306; 94640; 96374; 96375; 99285-25; A9270-GY; J1650; J1815-GY; J1940; J2930